=== PATIENT | male | born 1950 | race Caucasian/White ===

== ENCOUNTER → 2023-02-09 | Outpatient (REF) | payer OTHER | LOC: EEVIPCON 12:21 → M LAB REF 12:21 | PROVIDERS: ATTEND Podiatrist | DX: L03.031 Cellulitis of right toe (principal); B95.62 Methicillin resistant Staphylococcus aureus infection as the cause of diseases classified elsewhere; M79.671 Pain in right foot ==

== ENCOUNTER → 2024-04-09 | Outpatient (CLI) | payer OTHER, MEDICARE | LOC: M PLAIMG 14:41 | PROVIDERS: ATTEND Internal Medicine Cardiovascular Disease | DX: I48.0 Paroxysmal atrial fibrillation (principal) ==